=== PATIENT | male | born 1980 | race Caucasian/White ===

== ENCOUNTER 2022-08-23 11:31 | Emergency (ER) | payer OTHER, BC ==
[~2022-08-23] VITALS: Ht 167.6 cm; Wt 82.1 kg
[2022-08-23 11:45] VITALS: BP 125/86
--- NOTE | 2022-08-23 11:50 | NUR ---
AMB. TO CHAIR A NO DIFFICULTY. NO DISTRESS. NO HX OF TRAUMA
[2022-08-23] MEDS ORDERED: IBUPROFEN 600 MG TAB PO ONE (12:00)
--- NOTE | 2022-08-23 12:55 | NUR ---
MEDICATED WITH NO DIFFICULTY. PT. TOOK MOTRIN PO
[2022-08-23] MEDS ORDERED: IBUP-2213 PO (13:23)
--- NOTE | 2022-08-23 13:34 | NUR ---
Patient discharged with v/s stable. Written and verbal after care instructions given and explained. Patient verbalized understanding. Ambulatory with steady gait. All questions addressed prior to discharge. Advised to follow up with PMD.
== END 2022-08-23 13:30 | disposition home or self-care (01) ==
LOC: MED 11:31
DX: S63.501A Unspecified sprain of right wrist, initial encounter (principal); X58.XXXA Exposure to other specified factors, initial encounter; Y92.89 Other specified places as the place of occurrence of the external cause; Y93.89 Activity, other specified; Y99.0 Civilian activity done for income or pay
CPT/HCPCS: 73110; 99283

== ENCOUNTER 2023-10-01 15:28 | Emergency (ER) | payer SELFPAY ==
[~2023-10-01] VITALS: Ht 172.7 cm; Wt 93.7 kg
[~2023-10-01 15:28] MED LIST: IBUP-2213 PO
[2023-10-01 16:10] VITALS: BP 116/64; PULSE 80; RESP 20; TEMP 97.7; O2SAT 97
[2023-10-01] MEDS ORDERED: DICL20GE TP (16:39)
[2023-10-01] MEDS ORDERED: IBUP-2213 PO (16:39)
[2023-10-01] MEDS: KETOROLAC 30 MG/ML VIAL IM ONE (16:48)
== END 2023-10-01 16:49 | disposition home or self-care (01) ==
LOC: MED 15:28
DX: S61.531A Puncture wound without foreign body of right wrist, initial encounter (principal); Z79.899 Other long term (current) drug therapy; X58.XXXA Exposure to other specified factors, initial encounter; Y93.89 Activity, other specified; Y92.89 Other specified places as the place of occurrence of the external cause; Y99.8 Other external cause status
CPT/HCPCS: 96372; 99283; J1885